=== PATIENT | male | born 1940 | race Caucasian/White ===

== ENCOUNTER → 2018-06-12 | Outpatient (CLI) | payer MEDICARE ==
--- NOTE | 2018-06-12 09:25 | RAD ---
EXAM DESCRIPTION: Shoulder,Right 2 or More Views CLINICAL HISTORY: SHOULDER PAIN COMPARISON: None Available. TECHNIQUE: 4 views of the right shoulder. FINDINGS: There is good internal and external rotation. There is no fracture or bone lesion. There are no significant degenerative changes observed. IMPRESSION: 1. Normal shoulder. Electronically signed by: Marvin Ballesteros MD 06/12/2018 9:24 AM CDT
== END ==
LOC: RAD 08:37
PROVIDERS: ATTEND Orthopaedic Surgery
DX: M25.511 Pain in right shoulder (principal)

== ENCOUNTER → 2018-07-01 | Outpatient (CLI) | payer MEDICARE ==
--- NOTE | 2018-07-02 08:28 | MRI ---
Study: MRI of the Right Shoulder. Indication: ROTATOR CUFF TEAR Technique: Multiplanar, multi sequence MRI of the right shoulder was obtained without intravenous contrast. Comparison: None. Findings: Partial visualization of a questionable large left pleural effusion versus artifact on the mortgage protection sales imaging. 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 Mild type II acromion with mild lateral downsloping and moderate volume subacromial/subdeltoid bursal fluid. Full-thickness, fullwidth supraspinatus tendon tear with retraction of torn tendon fibers to the level of the midline humeral head. In addition there is high-grade articular tearing of the anterior two thirds of the infraspinatus tendon insertion. Subscapularis tendinosis with multifocal low-grade interstitial fissuring. Teres minor tendon intact. Mild atrophy and grade 1 fatty infiltration rotator cuff musculature. Intracapsular long head biceps tendinosis. Circumferential labral truncation and degeneration. Mild glenohumeral joint osteoarthritis with a small joint effusion. No acute fracture. Impression: Retracted full-thickness, fullwidth supraspinatus tendon tear with high-grade articular tearing anterior two thirds infraspinatus tendon insertion. Mild atrophy and grade 1 fatty infiltration rotator cuff musculature. Subscapularis tendinosis with multifocal low-grade interstitial fissuring. Mild atrophy and grade 1 fatty infiltration rotator cuff musculature. Intracapsular long head biceps tendinosis. Circumferential labral truncation. Mild glenohumeral joint osteoarthritis. 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 Questionable left pleural effusion versus artifact. Further characterization with dedicated chest imaging recommended. Findings on this exam were called to Chanelle at Dr. Albarado's office at 07/02/2018 8:26 AM HOSPICE SOCIAL WORKER. Electronically signed by: Maxi Bryant MD 07/02/2018 8:26 AM [facility] [[email or web address]]
== END ==
LOC: MRI 10:20
PROVIDERS: ATTEND Family Medicine
DX: M75.102 Unspecified rotator cuff tear or rupture of left shoulder, not specified as traumatic (principal); M75.31 Calcific tendinitis of right shoulder; I10 Essential (primary) hypertension; C61 Malignant neoplasm of prostate

== ENCOUNTER 2018-08-05 08:00 | Day surgery (SDC) | payer MEDICARE ==
--- NOTE | 2018-08-05 09:59 | RAD ---
EXAM DESCRIPTION: Chest,1 View CLINICAL HISTORY: Thoracentesis. FINDINGS/ IMPRESSION: Elevated left hemidiaphragm with minimal residual pleural fluid status post thoracentesis. No pneumothorax. Pleural based nodular density along the left upper chest wall seen on previous CT Electronically signed by: Tera Mustafa MD 08/05/2018 9:58 AM COUNTER CONTROL OPERATOR
[2018-08-05 10:25] VITALS: BP 119/72; TEMP 97.9; O2SAT 96
--- NOTE | 2018-08-05 10:55 | US ---
EXAM DESCRIPTION: Thoracentesis: ULTRASOUND. CLINICAL HISTORY: 78 years Male THORACENTESIS COMPARISON: CT scan of the chest 07/29/2018. Chest radiograph 07/29/2018. TECHNIQUE: Transcutaneous scanning: Bryant-scale and Doppler modes. Scanning of the thoracic region of interest posteriorly through the back. The procedure was performed by Dr. Mendoza. Sterile preparation and technique. 450 mL of fluid was drained. No immediate complications. FINDINGS: Left meryl-thorax was imaged by scanning through the back prior to the procedure. 1 fluid pocket measured 12 x 3.7 cm. The pocket of fluid significantly decreased post thoracentesis. IMPRESSION: Successful, ultrasound-guided thoracentesis left pleural space. Electronically signed by: Kwadwo Powers MD 08/05/2018 10:54 AM MANAGER INTERFACE
--- NOTE | 2018-08-05 19:37 | OP ---
DATE OF PROCEDURE: 08/05/18 PREOPERATIVE DIAGNOSIS: 1. Left pleural effusion. 2. History of carcinoma of the prostate. POSTOPERATIVE DIAGNOSIS: 1. Left pleural effusion. 2. History of carcinoma of the prostate. SURGICAL PROCEDURE: 1. Sonography guided left thoracentesis. SURGEON: Gavino Mendoza M.D. AGILE COACH: None. ANESTHESIA: Local infiltration of 1% Lidocaine. INDICATION FOR SURGERY: The patient is a 78 year-old male with a history of prostate cancer in the distant past, but has maintained a mildly elevated PSA of under 10. He underwent a chest x-ray which revealed a pleural effusion followed by a CT scan. He was brought to the Ambulatory Unit for a diagnostic thoracentesis. FINDINGS AT TIME OF PROCEDURE: Approximately 500 mL of blood-tinged fluid was obtained and studies are pending. DESCRIPTION OF PROCEDURE: The patient was brought to the Ultrasound Unit and in the sitting position with his arms extended on the table his left chest was examined with ultrasound, and a significant fluid cavity was identified. It is marked then prepped and draped. When this was done, local infiltration of anesthesia was obtained and a 22 gauge needle is walked over the rib and advanced until fluid is obtained. A stab wound was made with a #11 blade and the thoracentesis catheter was introduced in the same manner. When fluid is obtained it is advanced. The ultrasound identifies the catheter in good position. Fluid is aspirated first through a stopcock and then eventually with a suction canister with a total of 500 mL removed. Again the chest is inspected. The catheter is noted to be in place with the fluid resolved. The catheter is removed. Pressure is held for hemostasis and a sterile dressing was applied. The patient tolerated the procedure well. Blood loss was less than 5 mL. A stat portable chest x-ray is pending. #[id number] MTDD
== END 2018-08-05 10:10 | disposition home or self-care (01) ==
LOC: AMB 08:00
PROVIDERS: ATTEND Surgery
DX: J90 Pleural effusion, not elsewhere classified (principal); R97.21 Rising PSA following treatment for malignant neoplasm of prostate; I10 Essential (primary) hypertension; Z90.79 Acquired absence of other genital organ(s); Z85.46 Personal history of malignant neoplasm of prostate; Z79.82 Long term (current) use of aspirin; Z79.899 Other long term (current) drug therapy

== ENCOUNTER → 2019-04-16 | Outpatient (CLI) | payer MEDICARE ==
--- NOTE | 2019-04-16 13:45 | RAD ---
EXAM DESCRIPTION: Knee,Left Complete CLINICAL HISTORY: Pain in left knee COMPARISON: None. FINDINGS: 4 standing views of the left knee show diffuse osteopenia the osseous structures. No acute fracture or dislocation. Irregularity of the central articular surface of the patella is seen with mild lateral patellar tilting. Soft tissues are unremarkable. No joint effusion. IMPRESSION: Mild osteoarthritic changes of the patellofemoral compartment with irregularity of the articular surface which could represent chondrosis and osteoarthritic changes. Electronically signed by: Edgardo Yan MD 04/16/2019 1:43 PM CDT
== END ==
LOC: RAD 09:37
PROVIDERS: ATTEND Orthopaedic Surgery
DX: M17.12 Unilateral primary osteoarthritis, left knee (principal)

== ENCOUNTER → 2020-01-29 | Outpatient (CLI) | payer MEDICARE | LOC: GMAE 12:28 | PROVIDERS: ATTEND Family Medicine | DX: D50.9 Iron deficiency anemia, unspecified (principal) ==

== ENCOUNTER → 2020-02-15 | Outpatient (CLI) | payer MEDICARE ==
--- NOTE | 2020-02-15 11:37 | RAD ---
EXAM DESCRIPTION: Shoulder,Right 2 or More Views CLINICAL HISTORY: 79 years Male, PAIN IN RIGHT SHOULDER COMPARISON: 06/12/2018. FINDINGS: The visualized bones are well-mineralized.No acute fracture or dislocation. Mild acromioclavicular joint osteoarthritis. The soft tissues appear grossly unremarkable. IMPRESSION: No definite bony abnormality is noted in the right shoulder. Mild acromioclavicular joint osteoarthritis. Electronically signed by: Portia Ruiz MD 02/15/2020 11:36 AM CDT
== END ==
LOC: RAD 09:46
PROVIDERS: ATTEND Orthopaedic Surgery
DX: M19.011 Primary osteoarthritis, right shoulder (principal)